=== PATIENT | female | born 1970 | race African-American/Black ===

== ENCOUNTER 2021-02-10 10:05 | Emergency (ER) | payer OTHER ==
[~2021-02-10] VITALS: Ht 157.5 cm; Wt 69.1 kg
[2021-02-10] MEDS ORDERED: TRAZ1TAB12 PO (10:15)
--- NOTE | 2021-02-10 11:53 | REP ---
INDICATION: rib pain after fall. COMPARISON: None. TECHNIQUE: Five views including PA chest. FINDINGS: PA chest radiograph is normal. There is no evidence of pneumothorax or hydrothorax. Mediastinum is not widened. Heart size is normal. There is an old healed fracture of the right clavicle. Multiple views of the left ribcage show intact left ribs. No fracture or bony destructive lesion is seen. IMPRESSION: Negative left rib radiographs. <Electronically signed by Bernard Ngo > 02/10/21 1001
[2021-02-10 12:21] LABS: BASO # 0.1 10^3/uL (0.0-0.2); BASO % 0.8 % (0.0-1.0); EOS # 0.1 10^3/uL (0.0-0.5); EOS % 1.4 % (0.0-3.0); HEMATOCRIT 47.1 % (36.0-47.0); HEMOGLOBIN 15.4 g/dl (12.0-15.5); LYMPH # 3.1 10^3/uL (1.5-5.0); LYMPH % 35.3 % (24.0-44.0); MEAN CORPUSCULAR HEMOGLOBIN 28.8 pg (27.0-33.0); MEAN CORPUSCULAR HGB CONC 32.7 g/dl (32.0-36.5); MEAN CORPUSCULAR VOLUME 88.2 fl (80.0-96.0); MONO # 0.5 10^3/uL (0.0-0.8); MONO % 5.3 % (2.0-8.0); NEUTROPHILS # 4.9 10^3/uL (1.5-8.5); NEUTROPHILS % 56.7 % (36.0-66.0); PLATELET COUNT, AUTOMATED 277 10^3/uL (150-450); RED BLOOD COUNT 5.34 10^6/uL (4.00-5.40); WHITE BLOOD COUNT 8.6 10^3/uL (4.0-10.0)
[2021-02-10 12:30] LABS: INR 0.92; PROTHROMBIN TIME 12.5 SECONDS (12.5-14.3)
[2021-02-10 12:31] LABS: PARTIAL THROMBOPLASTIN TIME 30.1 SECONDS (24.2-38.5)
[2021-02-10 12:53] LABS: ALBUMIN 4.1 GM/DL (3.2-5.2); BILIRUBIN,DIRECT 0.1 MG/DL (0.0-0.2); BILIRUBIN,TOTAL 0.3 MG/DL (0.2-1.0); TOTAL PROTEIN 8.3 GM/DL (6.4-8.2)
[2021-02-10] MEDS ORDERED: ISOVUE-370 76% 100ML VIAL As Ordered ONE (13:04)
--- NOTE | 2021-02-10 14:03 | REP ---
INDICATION: L flank, LUQ, L rib pain s/p fall down stairs. COMPARISON: None. TECHNIQUE: Helical scanning is acquired following the intravenous injection of 100 mL of Isovue 370. 3 mm axial images are generated. Coronal and sagittal MPR images are provided. FINDINGS: Preliminary digital fountain dispenser radiograph is unremarkable. On axial CT images there is no evidence of pneumothorax or hemothorax. Lung gusman are clear. No infiltrate or contusion is seen. Mediastinum is not widened no hematoma. The thoracic aorta enhances homogeneously and is normal in caliber and contour. No filling defect is seen in the pulmonary arterial tree. Bone window settings show evidence of an old healed right clavicle fracture. There is a nondisplaced fracture in the posterolateral segment of the left 9th rib which is barely visible. No adjacent pleural thickening. No other left-sided rib fracture is seen. No right rib fracture is appreciated. No evidence of sternal or thoracic spine element fracture. Exam is otherwise unremarkable. IMPRESSION: Nondisplaced fracture of the posterolateral segment of the left 9th rib. Otherwise negative CT study of the chest with IV contrast. <Electronically signed by Bernard Ngo > 02/10/21 1400
--- NOTE | 2021-02-10 14:08 | REP ---
INDICATION: L flank, LUQ, L rib pain s/p fall down stairs. COMPARISON: None. TECHNIQUE: Helical scanning was acquired and 4 mm axial images are re-formatted. Coronal and sagittal MPR images were generated and reviewed. The contrast enhancement dose is 100 mL of intravenous Isovue 370. FINDINGS: Preliminary digital elevator constructor electric radiograph demonstrates an unremarkable bowel gas pattern. The liver and the spleen are normal in size homogeneous in texture. No hematoma is seen in either organ. The pancreas is unremarkable. No abnormality is noted in the gallbladder. Normal adrenal glands are seen bilaterally. No retroperitoneal hematoma is seen. Normal caliber aorta is noted. There are calcified uterine fibroid changes in the uterine fundus. There appear to be sutures at the cecal tip suggesting previous appendectomy. In any event, there is no CT evidence to suggest appendiceal inflammation. No free fluid is seen. Moderate stool is seen in the rectum. No abdominal wall hematoma is appreciated. On bone window settings, no lumbar spine or pelvic fracture is seen. the nondisplaced subtle fracture of the left 9th rib is again seen as on chest CT. The kidneys enhance symmetrically and appear morphologically intact. There is an intrarenal calculus in the lower pole collecting system of the right kidney measuring 2 mm in size. No hydronephrosis is seen. IMPRESSION: Nondisplaced left posterolateral 9th rib fracture noted. No other fracture is seen. The patient appears to be status post right appendectomy. There is an intrarenal calculus in the right kidney collecting system without hydronephrosis. No other traumatic abnormality seen. <Electronically signed by Bernard Ngo > 02/10/21 [id number]
[2021-02-10] MEDS ORDERED: HYDR-3713 PO (14:27)
[2021-02-10] MEDS ORDERED: NORCO, ANEXSIA 5/325MG TABLET (HYDROcodone/ACETAMINOPHEN) PO ONE (14:30)
[2021-02-10 14:54] VITALS: BP 160/98
== END 2021-02-10 14:57 | disposition home or self-care (01) ==
LOC: M ED 10:05
DX: S20.212A Contusion of left front wall of thorax, initial encounter (principal); S22.32XA Fracture of one rib, left side, initial encounter for closed fracture; W10.9XXA Fall (on) (from) unspecified stairs and steps, initial encounter; Y92.89 Other specified places as the place of occurrence of the external cause; Y93.89 Activity, other specified; Y99.8 Other external cause status; M54.9 Dorsalgia, unspecified; M25.561 Pain in right knee; M25.562 Pain in left knee; G89.29 Other chronic pain; M19.90 Unspecified osteoarthritis, unspecified site
CPT/HCPCS: 36415; 71101; 71260; 74177; 80047; 80076; 81001; 83690; 85025; 85610; 85730; 99284; Q9967

== ENCOUNTER → 2021-04-17 | Outpatient (CLI) | payer OTHER ==
[~2021-04-17] MED LIST: HYDR-3713 PO; TRAZ1TAB12 PO
--- NOTE | 2021-04-28 13:43 | REPMRS ---
Patient History The patient states she has not had a clinical breast exam in over a year. No known family history of cancer. Patient states no breast complaints today. Patient has signed MRS History Sheet. Digital Woman Screen Mammo: April 17, 2021 - Exam #: [id number] Bilateral CC and MLO view(s) were taken. Technologist: Donita Cordero Technologist Prior study comparison: August 29, 2019, bilateral digital mammo screening bilat, performed at [place]. FINDINGS: The breast tissue is heterogeneously dense. This may lower the sensitivity of mammography. The Volpara volumetric breast density category is: C. There is a moderate amount of heterogeneously dense fibroglandular tissue which is fairly symmetric. There is no interval development of dominant mass, architectural distortion, or grouped microcalcification typical of malignancy. There has been no change in the appearance of the mammogram from the prior studies. 3-D tomosynthesis shows no additional findings. Assessment: BI-RADS/ACR category 1 mammogram. Negative Mammogram. Recommendation Routine screening mammogram of both breasts in 1 year (for women over age 40). This patient's [facility] Lifetime Breast Cancer RIsk is estimated at 7.9 %. This mammogram was interpreted with the aid of an FDA-approved computer-aided dectection system. Electronically Signed By: Bernard Ngo MD 04/28/21 0741
== END ==
LOC: M WHC 14:47
PROVIDERS: ATTEND Nurse Practitioner
DX: Z12.31 Encounter for screening mammogram for malignant neoplasm of breast (principal)

== ENCOUNTER → 2021-04-17 | Outpatient (CLI) | payer OTHER ==
--- NOTE | 2021-04-17 15:44 | DEXAMM ---
INDICATION: WEDGE COMPRESSION FX OF FIRST LUMBAR VERTEBRA. COMPARISON: None. TECHNIQUE: Bone density was measured using dual-energy x-ray absorptionmetry (DEXA). FINDINGS: AP SPINE L1-L4 BMD 1.048 g/cm2 Young Adult T-Score -1.2 Age Matched Z-Score -1.3. LT FEMUR, TOTAL BMD 0.910 g/cm2 Young Adult T-Score -0.8 Age Matched Z-Score -1.2. LT NECK BMD 0.815 g/cm2 Young Adult T-Score -1.6 Age Matched Z-Score -1.6. RT FEMUR, TOTAL BMD 0.913 g/cm2 Young Adult T-Score -0.8 Age Matched Z-Score -1.2. RT NECK BMD 0.843 g/cm2 Young Adult T-Score -1.4 Age Matched Z-Score -1.4. IMPRESSION: There is low bone density of the spine. There is low bone density of the left hip. There is low bone density of the right hip. FOLLOW-UP: Recommendation for the next bone density exam: 2 years. <Electronically signed by Bernard Ngo > 04/17/21 0382
== END ==
LOC: M WHC 14:40
PROVIDERS: ATTEND Nurse Practitioner
DX: S32.010A Wedge compression fracture of first lumbar vertebra, initial encounter for closed fracture (principal); Z13.820 Encounter for screening for osteoporosis; M85.89 Other specified disorders of bone density and structure, multiple sites